=== PATIENT | female | born 1980 | race Hispanic/Latino ===

== ENCOUNTER 2020-10-28 13:39 | Emergency (ER) | payer OTHER ==
[~2020-10-28] VITALS: Ht 157.5 cm; Wt 66.9 kg
[2020-10-28 13:40] VITALS: BP 131/79
[2020-10-28] MEDS ORDERED: ZOFR4TAB16 PO (15:57)
[2020-10-28] MEDS ORDERED: CLAR10CA3 PO (15:57)
[2020-10-28] MEDS ORDERED: AUGM875T28 PO (15:57)
== END 2020-10-28 16:25 | disposition home or self-care (01) ==
LOC: M ED 13:39
DX: H66.93 Otitis media, unspecified, bilateral (principal); R11.2 Nausea with vomiting, unspecified